=== PATIENT | female | born 1950 | race Caucasian/White ===

== ENCOUNTER 2018-02-08 07:04 | Emergency (ER) | payer MEDICARE, OTHER ==
[~2018-02-08] VITALS: Ht 167.6 cm; Wt 63.5 kg
[~2018-02-08 07:04] MED LIST: ADULT LOW DOSE81 MG; BIOTIN1 MG PO; CALCIUM 500 +1 EAC4 PO; CARISOPRODOL 3350 MG PO; FISHOIL PO; GLUCOSAMINE-CH1 EA33 OR; MISC; MOBIC7.5 MG PO; NAPROSYN500 MG PO; SIMVASTATIN40 MG PO; SYNTHROID88 MCG PO; VITAMIN E400 UNIT PO; VITAMINC500 PO; policosanol
[2018-02-08] MEDS ORDERED: PROTONIX40 M1 PO (07:16)
[2018-02-08] MEDS ORDERED: HYDROXYCHLOROQ200 M1 PO (07:16)
[2018-02-08] MEDS ORDERED: TRAMADOL 50 MG50 MG PO (07:17)
[2018-02-08] MEDS ORDERED: KRILL OIL500 MG PO (07:18)
[2018-02-08] MEDS ORDERED: OMEGA-31000 M1 PO (07:18)
[2018-02-08 07:47] LABS: HEMATOCRIT 35.4 % (37.0-47.0); HEMOGLOBIN 11.6 gm/dL (12.0-15.0); MCH 30.9 pg (26.0-34.0); MCHC 32.7 g/dL (28.0-37.0); MCV 94.6 fL (80.0-100.0); MPV 7.3 fl. (7.2-11.1); NUCLEATED RBCS 0 /100WBC; PLATELET COUNT* 478 thou/uL (150-400); RBC 3.74 mil/uL (4.20-5.00); RDW-CV 13.6 % (10.5-14.5); WBC 9.2 thou/uL (4.0-11.0)
[2018-02-08 08:02] LABS: CALCIUM 8.5 mg/dL (8.5-10.1); POTASSIUM 3.4 mmol/L (3.5-5.1)
[2018-02-08 08:08] LABS: ALBUMIN 2.3 g/dL (3.4-5.0); TOTAL BILIRUBIN 0.4 mg/dL (<0.1-1.0); TOTAL PROTEIN 6.9 g/dL (6.4-8.2)
[2018-02-08 08:36] LABS: INFLUENZA A ANTIGEN None Detected (None Detect); INFLUENZA B ANTIGEN None Detected (None Detect)
[2018-02-08 08:58] LABS: ABSOLUTE EOSINOPHILS 0.2 thou/uL (0.0-0.7); ABSOLUTE MONOCYTES 0.7 thou/uL (0.0-1.2); ABSOLUTE NEUTROPHILS 7.3 thou/uL (1.6-8.1)
[2018-02-08 08:59] LABS: LARGE PLATELETS OCCASIONAL; PLATELET ESTIMATE INCREASED
[2018-02-08] MEDS ORDERED: AMOXICILLIN875 MG PO (09:35)
[2018-02-08] MEDS ORDERED: HYDROCODON-ACE1 EAC7 PO (09:35)
[2018-02-08] MEDS ORDERED: TORADOL 10 MG T10 MG PO (09:35)
[2018-02-08 09:54] VITALS: BP 140/79
== END 2018-02-08 09:55 | disposition home or self-care (01) ==
LOC: M.ERS 07:04
PROVIDERS: Personal Emergency Response Attendant
DX: J32.9 Chronic sinusitis, unspecified (principal); R19.7 Diarrhea, unspecified; M32.9 Systemic lupus erythematosus, unspecified; Z88.2 Allergy status to sulfonamides; Z96.653 Presence of artificial knee joint, bilateral